=== PATIENT | male | born 1970 | race Caucasian/White ===

== ENCOUNTER 2020-05-04 04:43 | Emergency (ER) | payer OTHER ==
[~2020-05-04] VITALS: Ht 177.8 cm; Wt 81.6 kg
[2020-05-04] MEDS ORDERED: DICLOFENAC SODI75 MG PO (05:48)
[2020-05-05] MEDS ORDERED: VOLTAREN100 GM TOP (16:37)
== END 2020-05-04 06:25 | disposition home or self-care (01) ==
LOC: ER 04:43
DX: S83.8X2A Sprain of other specified parts of left knee, initial encounter (principal); M12.562 Traumatic arthropathy, left knee; W01.198A Fall on same level from slipping, tripping and stumbling with subsequent striking against other object, initial encounter; Y93.E1 Activity, personal bathing and showering; Y92.59 Other trade areas as the place of occurrence of the external cause; Y99.8 Other external cause status